=== PATIENT | male | born 1950 | race Caucasian/White ===

== ENCOUNTER 2018-01-12 14:10 | Inpatient (IN) | payer MEDICARE ==
[2018-01-07 09:43] LABS: BASOPHILS % (AUTO) 0.4 % (0-1); EOSINOPHILS # (AUTO) 0.3 X10'3 (0-0.9); EOSINOPHILS % (AUTO) 4.6 % (0-6); HEMATOCRIT 42.8 % (42.0-52.0); HEMOGLOBIN 14.7 g/dl (14.0-17.9); LYMPHOCYTES # (AUTO) 1.2 X10'3 (1.1-4.8); LYMPHOCYTES % (AUTO) 20.1 % (21-51); MEAN CORPUSCULAR HEMOGLOBIN 31.8 PG (27.0-31.0); MEAN CORPUSCULAR HGB CONC 34.3 % (33.0-36.5); MEAN CORPUSCULAR VOLUME 92.8 FL (78-98); MONOCYTES # (AUTO) 0.5 X10'3 (0-0.9); MONOCYTES % (AUTO) 8.7 % (2-12); NEUTROPHILS # (AUTO) 3.9 X10'3 (1.8-7.7); NEUTROPHILS % (AUTO) 66.2 % (42-75); PLATELET COUNT 197 X10'3 (140-440); RED BLOOD COUNT 4.61 X10'6 (4.70-6.10); RED CELL DISTRIBUTION WIDTH 13.4 % (11.5-14.5); WHITE BLOOD COUNT 5.9 X10'3 (4.5-11.0)
[2018-01-07 09:54] LABS: PARTIAL THROMBOPLASTIN TIME 27 SECONDS (22-32)
[2018-01-07 09:55] LABS: ALBUMIN 3.7 G/DL (3.4-5.0); ANION GAP 9 (8-16); BLOOD UREA NITROGEN 17 MG/DL (7-18); BUN/CREATININE RATIO 14.8 (5.4-32.0); CALCIUM 10.7 MG/DL (8.5-10.1); CHLORIDE 105 MMOL/L (99-107); CREATININE 1.15 MG/DL (0.60-1.10); GLUCOSE 134 MG/DL (70-104); SODIUM 140 MMOL/L (135-145); TOTAL CARBON DIOXIDE 25.8 MMOL/L (24-32); eGFR 64 ML/MIN
[~2018-01-12] VITALS: Ht 236.2 cm; Wt 92.4 kg
[2018-01-12] VITALS (9 sets, daily range): BP systolic 103–135; BP diastolic 51–75
[~2018-01-12 14:10] MED LIST: ASPI-611 PO; ATOR80TA PO; HYDROcodone/acetaminophen 10/325mg tab PO PRN; ISOS30TA6 PO; LISI10TA4 PO; METO100T7 PO; OXAZEpam 15mg capsule PO PRN; SILO8CAP PO; UBID50TA3 PO; nitroGLYCERIN 0.4mg SUBLingual tab SL PRN; proCHLORperazine 10 MG/2 ml inj IV PRN
[2018-01-12] MEDS ORDERED: LIDOcaine/PRILOcaine 5gm cream TP ONE (14:55)
[2018-01-12] MEDS ORDERED: diphenhydrAMINE 25mg capsule PO PRN (14:55)
[2018-01-12] MEDS ORDERED: LORazepam 0.5 MG tablet PO PRN (14:55)
[2018-01-12] MEDS ORDERED: TAMS0.4C32 PO (15:30)
[2018-01-12] MEDS ORDERED: NITR0.4T48 SL (15:30)
[2018-01-12] MEDS ORDERED: FOLI100T PO (15:30)
[2018-01-12] MEDS: normal saline 1000ml 1,000 ML IV SCH (16:46)
[2018-01-12] MEDS ORDERED: midazolam 2 mg/2 ml injection ONE (18:11)
[2018-01-12] MEDS ORDERED: nitroGLYCERIN-Tridil 50MG/D5W 250 ML IV ONE (18:11)
[2018-01-12] MEDS ORDERED: heparin 1,000unit/ml 10ml vial 10 ML ONE (18:11)
[2018-01-12] MEDS ORDERED: fentaNYL/PF 50MCG/1 ML 2ML syringe ONE (18:11)
[2018-01-12] MEDS ORDERED: iohexol 350MG/ML 100ml bottle IV ONE (18:12)
[2018-01-12] MEDS ORDERED: LIDOcaine 1% 30ml preserv. free vial ONE (18:12)
[2018-01-12] MEDS ORDERED: proCHLORperazine 10 MG/2 ml inj ONE (18:15)
[2018-01-12] MEDS ORDERED: verapamil 2.5 mg/ml inj IV ONE (18:22)
[2018-01-12] MEDS ORDERED: ondansetron/PF 4mg/2ml inj IV PRN (18:45)
[2018-01-12] MEDS: normal saline 1000ml 400 ML IV SCH ×2 (18:45→22:45)
[2018-01-12] MEDS ORDERED: HYDROcodone/acetaminophen 5mg/325mg tablet PO PRN (18:45)
[2018-01-13] MEDS: normal saline 1000ml 1,000 ML IV SCH ×2 (00:55→10:55)
[2018-01-13] MEDS: normal saline 1000ml 400 ML IV SCH ×3 (02:45→10:45)
[2018-01-13 03:00] VITALS: BP 116/56
[2018-01-13 05:11] LABS: BASOPHILS % (AUTO) 0.5 % (0-1); EOSINOPHILS # (AUTO) 0.2 X10'3 (0-0.9); EOSINOPHILS % (AUTO) 3.2 % (0-6); HEMATOCRIT 42.3 % (42.0-52.0); HEMOGLOBIN 14.6 g/dl (14.0-17.9); LYMPHOCYTES # (AUTO) 1.4 X10'3 (1.1-4.8); LYMPHOCYTES % (AUTO) 20.6 % (21-51); MEAN CORPUSCULAR HEMOGLOBIN 32.4 PG (27.0-31.0); MEAN CORPUSCULAR HGB CONC 34.5 % (33.0-36.5); MEAN CORPUSCULAR VOLUME 93.8 FL (78-98); MEAN PLATELET VOLUME 7.1 FL (7.4-10.4); MONOCYTES # (AUTO) 0.7 X10'3 (0-0.9); MONOCYTES % (AUTO) 9.8 % (2-12); NEUTROPHILS # (AUTO) 4.6 X10'3 (1.8-7.7); NEUTROPHILS % (AUTO) 65.9 % (42-75); PLATELET COUNT 189 X10'3 (140-440); RED CELL DISTRIBUTION WIDTH 13.2 % (11.5-14.5); WHITE BLOOD COUNT 6.9 X10'3 (4.5-11.0)
[2018-01-13 06:00] VITALS: BP 137/79
[2018-01-13 06:13] LABS: ALANINE AMINOTRANSFERASE 43 U/L (12-78); ALBUMIN 3.3 G/DL (3.4-5.0); ALKALINE PHOSPHATASE 81 IU/L (46-116); ANION GAP 8 (8-16); ASPARTATE AMINO TRANSFERASE 21 U/L (10-37); BILIRUBIN,TOTAL 0.5 MG/DL (0.1-1.0); BLOOD UREA NITROGEN 12 MG/DL (7-18); CALCIUM 10.3 MG/DL (8.5-10.1); CHLORIDE 107 MMOL/L (99-107); CHOL/HDL RATIO 4.1 (0.00-4.99); CHOLESTEROL 146 MG/DL (0-200); GLUCOSE 115 MG/DL (70-104); HDL CHOLESTEROL 36 MG/DL (35-60); POTASSIUM 3.9 MMOL/L (3.5-5.1); SODIUM 140 MMOL/L (135-145); TOTAL CARBON DIOXIDE 24.7 MMOL/L (24-32); TOTAL PROTEIN 6.5 G/DL (6.4-8.2); TRIGLYCERIDES 343 MG/DL (20-135); eGFR 75 ML/MIN
[2018-01-13 06:23] LABS: LDL CHOLESTEROL 73 MG/DL (50-100)
[2018-01-13] MEDS ORDERED: nitroGLYCERIN 0.4mg SUBLingual tab SL PRN (06:55)
[2018-01-13] MEDS ORDERED: MESSAGE TO NURSING PO ONE ×5 (07:30→10:00)
[2018-01-13] MEDS ORDERED: dextrose 50%-water 50ml dispensing syringe IV PRN (07:30)
[2018-01-13] MEDS ORDERED: UBIDECARENONE 400 MG PO SCH (08:00)
[2018-01-13] MEDS: metoprolol succinate 25mg (24-HOUR) SR. Tablet PO SCH (08:00)
[2018-01-13] MEDS: aspirin 81mg tab.chew PO SCH (08:01)
[2018-01-13] MEDS: tamsulosin 0.4mg capsule PO SCH (08:01)
[2018-01-13] MEDS: lisinopril 10 MG tablet PO SCH (08:01)
[2018-01-13] MEDS: multivitamins, therapeutics tablet PO SCH (08:01)
[2018-01-13 09:43] LABS: PARTIAL THROMBOPLASTIN TIME 29 SECONDS (22-32); PROTHROMBIN TIME 10.2 SECONDS (9.0-12.0)
[2018-01-13 11:00] VITALS: BP 141/69
[2018-01-13 11:16] LABS: ABG BASE EXCESS 1.1 mmol/L (-2.0-3.0); ABG HCO3 24.2 mmol/L (22.0-26.0); ABG PCO2 (T) 34.2 mmHg (35.0-48.0); ABG PH (T) 7.467 (7.350-7.450); ABG PO2 (T) 80.1 mmHg (83-108); ALLEN'S TEST Positive; FCOHb 0.1 % (0.5-1.5); FMetHb 0.1 % (0.3-1.12); FO2Hb 95.8 % (94-100); TOTAL HEMOGLOBIN 15.2 G/dl (14.0-18.0)
[2018-01-13 15:00] VITALS: BP 147/78
[2018-01-13] MEDS ORDERED: ringers solution, lacted 1,000 ML IV ONE (18:35)
[2018-01-13 19:00] VITALS: BP 144/88
[2018-01-13] MEDS: mupirocin 2% nasal ointment 1gm UD NS SCH (20:00)
[2018-01-13] MEDS ORDERED: atorvastatin 20mg tablet PO SCH (21:00)
[2018-01-13 23:00] VITALS: BP 119/62
[2018-01-14] VITALS (13 sets, daily range): BP systolic 101–150; BP diastolic 57–74
[2018-01-14] MEDS ORDERED: vancomycin/NS 1 GM ADD-VANTAGE 250 ML IV ONE ×2 (05:00→09:40)
[2018-01-14] MEDS ORDERED: insulin Lispro (HumaLOG) vial - multi-dose SQ SCH (05:00)
[2018-01-14] MEDS ORDERED: cefazolin/dext.iso 2gm/50ml 50 ML IV ONE (05:00)
[2018-01-14] MEDS: insulin regular, human inj. 100 UNITS in normal saline 100ml IV soln 100 ML IV SCH ×4 (05:00→23:24)
[2018-01-14 05:29] LABS: BASOPHILS % (AUTO) 0.4 % (0-1); EOSINOPHILS # (AUTO) 0.2 X10'3 (0-0.9); EOSINOPHILS % (AUTO) 2.6 % (0-6); HEMATOCRIT 46.4 % (42.0-52.0); HEMOGLOBIN 15.9 g/dl (14.0-17.9); LYMPHOCYTES # (AUTO) 1.8 X10'3 (1.1-4.8); LYMPHOCYTES % (AUTO) 22.2 % (21-51); MEAN CORPUSCULAR HGB CONC 34.3 % (33.0-36.5); MEAN CORPUSCULAR VOLUME 93.3 FL (78-98); MEAN PLATELET VOLUME 6.9 FL (7.4-10.4); MONOCYTES # (AUTO) 0.7 X10'3 (0-0.9); MONOCYTES % (AUTO) 8.4 % (2-12); NEUTROPHILS # (AUTO) 5.3 X10'3 (1.8-7.7); NEUTROPHILS % (AUTO) 66.4 % (42-75); PLATELET COUNT 241 X10'3 (140-440); RED BLOOD COUNT 4.97 X10'6 (4.70-6.10); RED CELL DISTRIBUTION WIDTH 13.4 % (11.5-14.5)
[2018-01-14 05:49] LABS: ALANINE AMINOTRANSFERASE 51 U/L (12-78); ALBUMIN/GLOBULIN RATIO 1.1 (1.1-1.5); ALKALINE PHOSPHATASE 96 IU/L (46-116); ANION GAP 12 (8-16); ASPARTATE AMINO TRANSFERASE 29 U/L (10-37); BLOOD UREA NITROGEN 9 MG/DL (7-18); BUN/CREATININE RATIO 7.7 (5.4-32.0); CALCIUM 11.3 MG/DL (8.5-10.1); CHLORIDE 103 MMOL/L (99-107); CREATININE 1.17 MG/DL (0.60-1.10); GLUCOSE 129 MG/DL (70-104); POTASSIUM 3.8 MMOL/L (3.5-5.1); SODIUM 139 MMOL/L (135-145); TOTAL CARBON DIOXIDE 24.3 MMOL/L (24-32); TOTAL PROTEIN 7.8 G/DL (6.4-8.2); eGFR 62 ML/MIN
[2018-01-14] MEDS ORDERED: LORazepam 2 mg/ml vial IV ONE (06:00)
[2018-01-14] MEDS ORDERED: famotidine 20mg tablet PO ONE (06:00)
[2018-01-14] MEDS: lisinopril 10 MG tablet PO SCH (08:00)
[2018-01-14] MEDS: tamsulosin 0.4mg capsule PO SCH (08:00)
[2018-01-14] MEDS: multivitamins, therapeutics tablet PO SCH (08:00)
[2018-01-14] MEDS: metoprolol succinate 25mg (24-HOUR) SR. Tablet PO SCH (10:41)
[2018-01-14] MEDS: mupirocin 2% nasal ointment 1gm UD NS SCH (10:42)
[2018-01-14] MEDS: aspirin 81mg tab.chew PO SCH (10:42)
[2018-01-14] MEDS ORDERED: MIDAZolam 1mg/ml 10ml vial ONE (10:51)
[2018-01-14] MEDS ORDERED: SUFENTANIL CITRATE 50 MCG/ML 2ml ampule IV ONE (10:51)
[2018-01-14] MEDS ORDERED: NORMAL SALINE IV ONE (12:15)
[2018-01-14] MEDS ORDERED: TRANEXAMIC ACID IV ONE (12:15)
[2018-01-14] MEDS ORDERED: calcium chloride 100 MG/1 ML inj IV ONE (13:35)
[2018-01-14] MEDS ORDERED: sodium bicarbonate (8.4%) 1 mEq/ml syringe ONE (13:35)
[2018-01-14] MEDS ORDERED: heparin 1,000 units/ml 10ml inj ONE (13:35)
[2018-01-14] MEDS ORDERED: phenylephrine 10mg/ml inj. ONE ×2 (13:35→19:01)
[2018-01-14] MEDS ORDERED: methylPREDNISolone sod. succ. 500mg inj ONE (13:35)
[2018-01-14] MEDS ORDERED: potassium Cl 2 mEq/ml inj IV ONE (13:35)
[2018-01-14] MEDS ORDERED: magnesium sulf 1 GM/2 ML ONE (13:35)
[2018-01-14] MEDS ORDERED: LIDOcaine 2% (20 mg/ml) 5ml cardiac syringe ONE (13:35)
[2018-01-14] MEDS ORDERED: heparin 10,000 units/1 ML INJ ONE (13:35)
[2018-01-14 14:25] LABS: ABG BASE EXCESS -2.2 mmol/L (-2.0-3.0); ABG HCO3 22.6 mmol/L (22.0-26.0); ABG OXYGEN SATURATION 99.4 % (95-98); ABG PCO2 39.1 mmHg (35.0-45.0); ABG PO2 360.6 mmHg (60.0-100.0); CL (ABG) 108 mmol/L (99-107); FCOHb 0.9 % (0.5-1.5); FMetHb 0.2 % (0.3-1.12); FO2Hb 98.3 % (94-100); GLUCOSE (ABG) 121 mg/dl (70-105); IONIZED CA (ABG) 1.36 mmol/L (1.03-1.32); K (ABG) 3.9 mmol/L (3.3-5.1); NA (ABG) 139 mmol/L (135-145); TOTAL HEMOGLOBIN 13.5 G/dl (14.0-18.0)
[2018-01-14] MEDS ORDERED: papaverine 30 mg/ml 2ml inj. IA ONE (14:42)
[2018-01-14] MEDS ORDERED: tranexamic acid 100mg/ml inj. ONE (14:58)
[2018-01-14 15:26] LABS: ABG BASE EXCESS VENOUS -3.1 mmol/L; ABG HCO3 VENOUS 22.2 mmol/L; ABG PCO2 VENOUS 40.8 mmHg; ABG PO2 VENOUS 51.8 mmHg; CL (ABG) 107 mmol/L (99-107); FCOHb VENOUS 1.1 %; FHHb VENOUS 15.2 %; FO2Hb VENOUS 83.7 %; GLUCOSE (ABG) 127 mg/dl (70-105); IONIZED CA (ABG) 1.35 mmol/L (1.03-1.32); K (ABG) 4.1 mmol/L (3.3-5.1); NA (ABG) 141 mmol/L (135-145); TOTAL HEMOGLOBIN 14.1 G/dl (14.0-18.0)
[2018-01-14 16:06] LABS: ABG BASE EXCESS -2.1 mmol/L (-2.0-3.0); ABG HCO3 23.2 mmol/L (22.0-26.0); ABG OXYGEN SATURATION 99.3 % (95-98); ABG PCO2 41.7 mmHg (35.0-45.0); ABG PH 7.363 (7.350-7.450); ABG PO2 359.6 mmHg (60.0-100.0); CL (ABG) 107 mmol/L (99-107); FCOHb 0.2 % (0.5-1.5); FMetHb 0.5 % (0.3-1.12); FO2Hb 98.6 % (94-100); GLUCOSE (ABG) 134 mg/dl (70-105); IONIZED CA (ABG) 1.19 mmol/L (1.03-1.32); NA (ABG) 137 mmol/L (135-145); TOTAL HEMOGLOBIN 11.3 G/dl (14.0-18.0)
[2018-01-14 16:31] LABS: ABG HCO3 26.9 mmol/L (22.0-26.0); ABG OXYGEN SATURATION 99.2 % (95-98); ABG PCO2 43.4 mmHg (35.0-45.0); ABG PO2 375.7 mmHg (60.0-100.0); CL (ABG) 106 mmol/L (99-107); FMetHb 0.5 % (0.3-1.12); FO2Hb 98.7 % (94-100); GLUCOSE (ABG) 138 mg/dl (70-105); IONIZED CA (ABG) 1.21 mmol/L (1.03-1.32); NA (ABG) 139 mmol/L (135-145); TOTAL HEMOGLOBIN 11.6 G/dl (14.0-18.0)
[2018-01-14 17:20] LABS: ABG BASE EXCESS VENOUS -0.2 mmol/L; ABG HCO3 VENOUS 25.2 mmol/L; ABG PCO2 VENOUS 44.1 mmHg; ABG PO2 VENOUS 40.1 mmHg; CL (ABG) 108 mmol/L (99-107); FCOHb VENOUS 0.8 %; FHHb VENOUS 25.4 %; FMetHb VENOUS 0.5 %; FO2Hb VENOUS 73.3 %; GLUCOSE (ABG) 142 mg/dl (70-105); IONIZED CA (ABG) 1.37 mmol/L (1.03-1.32); K (ABG) 4.5 mmol/L (3.3-5.1); NA (ABG) 138 mmol/L (135-145); TOTAL HEMOGLOBIN 12.2 G/dl (14.0-18.0)
[2018-01-14] MEDS ORDERED: niCARDipine/sod cl 20mg/200ml 200 ML IV PRN (17:31)
[2018-01-14] MEDS ORDERED: DOPamine 400mg/D5W 250ml 250 ML IV PRN (17:31)
[2018-01-14] MEDS ORDERED: nitroGLYCERIN-Tridil 50MG/D5W 250 ML IV PRN (17:31)
[2018-01-14] MEDS ORDERED: sodium phosphate inj. 15 MMOL in dextrose 5%-water 150 ML IV PRN (17:35)
[2018-01-14] MEDS ORDERED: Neutra Phos packet PO PRN (17:35)
[2018-01-14] MEDS ORDERED: dextrose 50%-water 50ml dispensing syringe IV PRN (17:35)
[2018-01-14] MEDS ORDERED: albumin (Human) 5% 250ml 250 ML IV PRN (17:35)
[2018-01-14] MEDS ORDERED: morphine 4 MG/ML inj SYRINge IV PRN (17:35)
[2018-01-14] MEDS ORDERED: acetaminophen 325mg tablet PO PRN (17:35)
[2018-01-14] MEDS ORDERED: potassium Cl 20mEq/100mL bag 100 ML IV PRN (17:35)
[2018-01-14] MEDS ORDERED: ondansetron/PF 4mg/2ml inj IV PRN (17:35)
[2018-01-14] MEDS ORDERED: normal saline 250ml IV soln 250 ML IV PRN (17:35)
[2018-01-14] MEDS ORDERED: magnesium hydroxide 30ml (MOM) UD suspension PO PRN (17:35)
[2018-01-14] MEDS ORDERED: insulin regular, human inj. 100 UNITS in normal saline 100ml IV soln 100 ML IV SCH ×2 (17:35)
[2018-01-14] MEDS ORDERED: sodium phosphate inj. 30 MMOL in dextrose 5%-water 250 ML IV PRN (17:35)
[2018-01-14] MEDS ORDERED: HYDROcodone/acetaminophen 10/325mg tab PO PRN (17:35)
[2018-01-14] MEDS ORDERED: morphine 4 MG/ML inj SYRINge ONE (17:52)
[2018-01-14] MEDS: morphine 4 MG/ML inj SYRINge IV PRN ×3 (17:55→23:34)
[2018-01-14 17:58] LABS: LYMPHOCYTES # (AUTO) 0.6 X10'3 (1.1-4.8); LYMPHOCYTES % (AUTO) 5.5 % (21-51); MONOCYTES # (AUTO) 0.4 X10'3 (0-0.9); WHITE BLOOD COUNT 11.6 X10'3 (4.5-11.0)
[2018-01-14] MEDS: insulin Lispro (HumaLOG) vial - multi-dose SQ SCH (18:00)
[2018-01-14] MEDS: sodium chloride 0.45% 1,000 ML IV SCH (18:06)
[2018-01-14 18:08] LABS: BASOPHILS % (AUTO) 0 % (0-1); EOSINOPHILS # (AUTO) 0.1 X10'3 (0-0.9); EOSINOPHILS % (AUTO) 0.7 % (0-6); HEMATOCRIT 34.1 % (42.0-52.0); HEMOGLOBIN 11.7 g/dl (14.0-17.9); INR 1.1 INR; MEAN CORPUSCULAR HGB CONC 34.3 % (33.0-36.5); MEAN CORPUSCULAR VOLUME 93.3 FL (78-98); MEAN PLATELET VOLUME 6.9 FL (7.4-10.4); MONOCYTES % (AUTO) 3.6 % (2-12); NEUTROPHILS # (AUTO) 10.5 X10'3 (1.8-7.7); NEUTROPHILS % (AUTO) 90.2 % (42-75); PARTIAL THROMBOPLASTIN TIME 30 SECONDS (22-32); PLATELET COUNT 153 X10'3 (140-440); PROTHROMBIN TIME 11.3 SECONDS (9.0-12.0); RED BLOOD COUNT 3.66 X10'6 (4.70-6.10); RED CELL DISTRIBUTION WIDTH 11.9 % (11.5-14.5)
[2018-01-14 18:11] LABS: ABG BASE EXCESS -4.3 mmol/L (-2.0-3.0); ABG HCO3 20.4 mmol/L (22.0-26.0); ABG PCO2 (T) 36.3 mmHg (35.0-48.0); ABG PH (T) 7.368 (7.350-7.450); ABG PO2 (T) 90.5 mmHg (83-108); FCOHb 0.3 % (0.5-1.5); FLOW 45 L/min; FMetHb 0.2 % (0.3-1.12); FO2Hb 95.5 % (94-100); MINUTE VOLUME 9 L/min; PEEP 5 cm H2O; RESPIRATORY RATE 12 b/min; RESPIRATORY RATE (OBSERVED) 12 b/min; TIDAL VOLUME 650 mL; TOTAL HEMOGLOBIN 13.1 G/dl (14.0-18.0)
[2018-01-14 18:12] LABS: ALANINE AMINOTRANSFERASE 35 U/L (12-78); ALBUMIN 2.7 G/DL (3.4-5.0); ALBUMIN/GLOBULIN RATIO 1.2 (1.1-1.5); ALKALINE PHOSPHATASE 54 IU/L (46-116); ANION GAP 6 (8-16); ASPARTATE AMINO TRANSFERASE 23 U/L (10-37); BILIRUBIN,TOTAL 0.9 MG/DL (0.1-1.0); BLOOD UREA NITROGEN 8 MG/DL (7-18); BUN/CREATININE RATIO 7.8 (5.4-32.0); CALCIUM 9.1 MG/DL (8.5-10.1); CHLORIDE 109 MMOL/L (99-107); CREATININE 1.03 MG/DL (0.60-1.10); GLUCOSE 155 MG/DL (70-104); MAGNESIUM 2.5 MG/DL (1.5-2.4); PHOSPHORUS 2.4 MG/DL (2.3-4.5); POTASSIUM 4.3 MMOL/L (3.5-5.1); SODIUM 139 MMOL/L (135-145); TOTAL PROTEIN 4.9 G/DL (6.4-8.2); eGFR 72 ML/MIN
[2018-01-14] MEDS ORDERED: albuterol 2.5 MG/3 ML nebule NEB SCH (19:00)
[2018-01-14] MEDS ORDERED: LIDOcaine 2% (20mg/ml) 5ml vial ONE (19:01)
[2018-01-14] MEDS ORDERED: propofol inj 20 ML IV ONE (19:01)
[2018-01-14] MEDS ORDERED: rocuronium 10mg/ml inj IV ONE (19:01)
[2018-01-14] MEDS: docusate sod 100mg capsule PO SCH (20:00)
[2018-01-14 20:26] LABS: ABG BASE EXCESS -4.5 mmol/L (-2.0-3.0); ABG HCO3 20.6 mmol/L (22.0-26.0); ABG PH (T) 7.343 (7.350-7.450); ABG PO2 (T) 102.4 mmHg (83-108); FCOHb 0.3 % (0.5-1.5); FMetHb 0.3 % (0.3-1.12); FO2Hb 96.4 % (94-100); MINUTE VOLUME 10 L/min; PATIENT TEMPERATURE 37.3; PEEP 5 cm H2O; RESPIRATORY RATE (OBSERVED) 17 b/min; TOTAL HEMOGLOBIN 13.9 G/dl (14.0-18.0)
[2018-01-14] MEDS: vancomycin/NS 1 GM ADD-VANTAGE 250 ML IV SCH (20:47)
[2018-01-14] MEDS: mupirocin 2% ointment 22GM NS SCH (21:21)
[2018-01-14 23:17] LABS: BASOPHILS % (AUTO) 0.1 % (0-1); EOSINOPHILS % (AUTO) 0.1 % (0-6); HEMATOCRIT 36.7 % (42.0-52.0); HEMOGLOBIN 12.8 g/dl (14.0-17.9); LYMPHOCYTES # (AUTO) 0.3 X10'3 (1.1-4.8); LYMPHOCYTES % (AUTO) 2.2 % (21-51); MEAN CORPUSCULAR HEMOGLOBIN 32.7 PG (27.0-31.0); MEAN CORPUSCULAR HGB CONC 34.8 % (33.0-36.5); MEAN CORPUSCULAR VOLUME 93.9 FL (78-98); MEAN PLATELET VOLUME 6.9 FL (7.4-10.4); MONOCYTES # (AUTO) 0.5 X10'3 (0-0.9); MONOCYTES % (AUTO) 3.6 % (2-12); NEUTROPHILS # (AUTO) 13.2 X10'3 (1.8-7.7); PLATELET COUNT 173 X10'3 (140-440); RED BLOOD COUNT 3.91 X10'6 (4.70-6.10); RED CELL DISTRIBUTION WIDTH 12.3 % (11.5-14.5)
[2018-01-14 23:24] LABS: ALBUMIN 3.2 G/DL (3.4-5.0); ANION GAP 8 (8-16); BLOOD UREA NITROGEN 11 MG/DL (7-18); CALCIUM 9.5 MG/DL (8.5-10.1); CHLORIDE 108 MMOL/L (99-107); CREATININE 1.22 MG/DL (0.60-1.10); GLUCOSE 173 MG/DL (70-104); POTASSIUM 4.3 MMOL/L (3.5-5.1); SODIUM 139 MMOL/L (135-145); TOTAL CARBON DIOXIDE 22.9 MMOL/L (24-32); eGFR 59 ML/MIN
[2018-01-15] VITALS (24 sets, daily range): BP systolic 100–175; BP diastolic 56–86
[2018-01-15] MEDS: ceFAZolin 1GM/D5W- ADD-VANTAGE 50 ML IV SCH ×3 (00:05→16:35)
[2018-01-15] MEDS: ketorolac tromethamine 15mg/ml inj. IV SCH ×4 (01:37→20:36)
[2018-01-15 02:39] LABS: PARTIAL THROMBOPLASTIN TIME 25 SECONDS (22-32); PROTHROMBIN TIME 10.5 SECONDS (9.0-12.0)
[2018-01-15 02:45] LABS: ALANINE AMINOTRANSFERASE 42 U/L (12-78); ALBUMIN 3.2 G/DL (3.4-5.0); ALBUMIN/GLOBULIN RATIO 1.2 (1.1-1.5); ALKALINE PHOSPHATASE 59 IU/L (46-116); ANION GAP 9 (8-16); ASPARTATE AMINO TRANSFERASE 30 U/L (10-37); BILIRUBIN,TOTAL 0.9 MG/DL (0.1-1.0); BLOOD UREA NITROGEN 11 MG/DL (7-18); BUN/CREATININE RATIO 8.5 (5.4-32.0); CALCIUM 9.4 MG/DL (8.5-10.1); CHLORIDE 108 MMOL/L (99-107); CREATININE 1.29 MG/DL (0.60-1.10); GLUCOSE 147 MG/DL (70-104); MAGNESIUM 1.9 MG/DL (1.5-2.4); PHOSPHORUS 2.4 MG/DL (2.3-4.5); POTASSIUM 4.2 MMOL/L (3.5-5.1); SODIUM 140 MMOL/L (135-145); TOTAL CARBON DIOXIDE 23.1 MMOL/L (24-32); TOTAL PROTEIN 5.9 G/DL (6.4-8.2); eGFR 56 ML/MIN
[2018-01-15 02:56] LABS: BASOPHILS % (AUTO) 0 % (0-1); EOSINOPHILS % (AUTO) 0.1 % (0-6); HEMATOCRIT 35.4 % (42.0-52.0); HEMOGLOBIN 12.3 g/dl (14.0-17.9); LYMPHOCYTES # (AUTO) 0.4 X10'3 (1.1-4.8); LYMPHOCYTES % (AUTO) 2.6 % (21-51); MEAN CORPUSCULAR HEMOGLOBIN 32.5 PG (27.0-31.0); MEAN CORPUSCULAR HGB CONC 34.8 % (33.0-36.5); MEAN CORPUSCULAR VOLUME 93.3 FL (78-98); MEAN PLATELET VOLUME 7.2 FL (7.4-10.4); MONOCYTES # (AUTO) 0.4 X10'3 (0-0.9); MONOCYTES % (AUTO) 2.8 % (2-12); NEUTROPHILS # (AUTO) 13.3 X10'3 (1.8-7.7); NEUTROPHILS % (AUTO) 94.5 % (42-75); PLATELET COUNT 172 X10'3 (140-440); RED CELL DISTRIBUTION WIDTH 12.5 % (11.5-14.5); WHITE BLOOD COUNT 14.1 X10'3 (4.5-11.0)
[2018-01-15] MEDS: magnesium 4gm in 100ml NS 100 ML IV PRN (03:37)
[2018-01-15] MEDS: insulin regular, human inj. 100 UNITS in normal saline 100ml IV soln 100 ML IV SCH ×2 (04:17)
[2018-01-15] MEDS: metoclopramide 5 mg/ml inj IV PRN ×2 (05:13→12:38)
[2018-01-15] MEDS: pantoprazole 40mg Tablet.DR PO SCH (07:47)
[2018-01-15] MEDS: docusate sod 100mg capsule PO SCH ×2 (07:47→20:36)
[2018-01-15] MEDS: mupirocin 2% ointment 22GM NS SCH ×2 (07:47→20:35)
[2018-01-15] MEDS: tamsulosin 0.4mg capsule PO SCH (07:48)
[2018-01-15] MEDS: HYDROcodone/acetaminophen 10/325mg tab PO PRN ×2 (07:49→14:39)
[2018-01-15] MEDS: vancomycin/NS 1 GM ADD-VANTAGE 250 ML IV SCH ×2 (07:50→20:37)
[2018-01-15] MEDS: aspirin 325mg tablet, delayed-release (Ecotrin) PO SCH (07:51)
[2018-01-15] MEDS: potassium Cl 20mEq/100mL bag 100 ML IV PRN ×3 (07:53→21:01)
[2018-01-15] MEDS ORDERED: metoprolol tartrate 12.5mg (1/2 tablet) PO SCH (08:00)
[2018-01-15] MEDS ORDERED: atorvastatin 10mg tablet PO SCH (08:00)
[2018-01-15] MEDS: insulin Lispro (HumaLOG) vial - multi-dose SQ SCH ×3 (09:00→18:45)
[2018-01-15 15:44] LABS: MAGNESIUM 2.1 MG/DL (1.5-2.4); POTASSIUM 3.5 MMOL/L (3.5-5.1)
[2018-01-15] MEDS: magnesium 1gm/100ml D5W IVPB 100 ML IV PRN ×2 (17:59→19:19)
[2018-01-15] MEDS: morphine 4 MG/ML inj SYRINge IV PRN (18:08)
[2018-01-15] MEDS: metoprolol tartrate 25mg tablet PO SCH (20:36)
[2018-01-16] VITALS (23 sets, daily range): BP systolic 95–141; BP diastolic 25–82
[2018-01-16] MEDS: ceFAZolin 1GM/D5W- ADD-VANTAGE 50 ML IV SCH ×2 (00:42→08:18)
[2018-01-16] MEDS: ketorolac tromethamine 15mg/ml inj. IV SCH ×4 (02:20→19:59)
[2018-01-16 02:54] LABS: ALBUMIN 3.1 G/DL (3.4-5.0); ANION GAP 6 (8-16); BLOOD UREA NITROGEN 14 MG/DL (7-18); BUN/CREATININE RATIO 12.6 (5.4-32.0); CALCIUM 9.5 MG/DL (8.5-10.1); CHLORIDE 105 MMOL/L (99-107); CREATININE 1.11 MG/DL (0.60-1.10); GLUCOSE 141 MG/DL (70-104); MAGNESIUM 2.5 MG/DL (1.5-2.4); PHOSPHORUS 2.5 MG/DL (2.3-4.5); POTASSIUM 4.6 MMOL/L (3.5-5.1); SODIUM 136 MMOL/L (135-145); TOTAL CARBON DIOXIDE 25.3 MMOL/L (24-32); eGFR 66 ML/MIN
[2018-01-16 02:58] LABS: BASOPHILS % (AUTO) 0.1 % (0-1); EOSINOPHILS % (AUTO) 0.1 % (0-6); HEMATOCRIT 31.9 % (42.0-52.0); HEMOGLOBIN 10.7 g/dl (14.0-17.9); LYMPHOCYTES # (AUTO) 0.7 X10'3 (1.1-4.8); LYMPHOCYTES % (AUTO) 4.5 % (21-51); MEAN CORPUSCULAR HEMOGLOBIN 31.9 PG (27.0-31.0); MEAN CORPUSCULAR HGB CONC 33.6 % (33.0-36.5); MEAN CORPUSCULAR VOLUME 94.9 FL (78-98); MEAN PLATELET VOLUME 7.3 FL (7.4-10.4); MONOCYTES # (AUTO) 1.1 X10'3 (0-0.9); MONOCYTES % (AUTO) 7.2 % (2-12); NEUTROPHILS # (AUTO) 13.6 X10'3 (1.8-7.7); NEUTROPHILS % (AUTO) 88.1 % (42-75); PLATELET COUNT 147 X10'3 (140-440); RED BLOOD COUNT 3.36 X10'6 (4.70-6.10); RED CELL DISTRIBUTION WIDTH 12.6 % (11.5-14.5); WHITE BLOOD COUNT 15.4 X10'3 (4.5-11.0)
[2018-01-16] MEDS: insulin regular, human inj. 100 UNITS in normal saline 100ml IV soln 100 ML IV SCH ×2 (05:00)
[2018-01-16] MEDS: pantoprazole 40mg Tablet.DR PO SCH (08:16)
[2018-01-16] MEDS: tamsulosin 0.4mg capsule PO SCH (08:16)
[2018-01-16] MEDS: metoprolol tartrate 25mg tablet PO SCH ×2 (08:17→20:00)
[2018-01-16] MEDS: HYDROcodone/acetaminophen 10/325mg tab PO PRN (08:17)
[2018-01-16] MEDS: docusate sod 100mg capsule PO SCH ×2 (08:17→20:00)
[2018-01-16] MEDS: aspirin 325mg tablet, delayed-release (Ecotrin) PO SCH (08:17)
[2018-01-16] MEDS: atorvastatin 20mg tablet PO SCH (08:18)
[2018-01-16] MEDS: mupirocin 2% ointment 22GM NS SCH (08:18)
[2018-01-16] MEDS: insulin Lispro (HumaLOG) vial - multi-dose SQ SCH ×3 (08:19→18:00)
[2018-01-16] MEDS ORDERED: neostigmine methylsulfate 1 MG/ML 10ml vial IV ONE (09:15)
[2018-01-16] MEDS: sodium chloride 0.45% 1,000 ML IV SCH (16:45)
[2018-01-17] VITALS (25 sets, daily range): BP systolic 103–145; BP diastolic 64–89
[2018-01-17] MEDS: ketorolac tromethamine 15mg/ml inj. IV SCH (01:48)
[2018-01-17 02:16] LABS: BASOPHILS # (AUTO) 0.1 X10'3 (0-0.2); BASOPHILS % (AUTO) 0.5 % (0-1); EOSINOPHILS # (AUTO) 0.1 X10'3 (0-0.9); EOSINOPHILS % (AUTO) 1.3 % (0-6); HEMATOCRIT 31.1 % (42.0-52.0); HEMOGLOBIN 10.6 g/dl (14.0-17.9); LYMPHOCYTES % (AUTO) 8.3 % (21-51); MEAN CORPUSCULAR HEMOGLOBIN 32.4 PG (27.0-31.0); MEAN CORPUSCULAR HGB CONC 34.1 % (33.0-36.5); MEAN CORPUSCULAR VOLUME 95.1 FL (78-98); MEAN PLATELET VOLUME 7.2 FL (7.4-10.4); MONOCYTES # (AUTO) 1.2 X10'3 (0-0.9); MONOCYTES % (AUTO) 10.1 % (2-12); NEUTROPHILS # (AUTO) 9.1 X10'3 (1.8-7.7); NEUTROPHILS % (AUTO) 79.8 % (42-75); PLATELET COUNT 143 X10'3 (140-440); RED BLOOD COUNT 3.28 X10'6 (4.70-6.10); RED CELL DISTRIBUTION WIDTH 12.8 % (11.5-14.5); WHITE BLOOD COUNT 11.5 X10'3 (4.5-11.0)
[2018-01-17 02:27] LABS: ALBUMIN 2.8 G/DL (3.4-5.0); ANION GAP 8 (8-16); BLOOD UREA NITROGEN 17 MG/DL (7-18); BUN/CREATININE RATIO 15.6 (5.4-32.0); CALCIUM 9.6 MG/DL (8.5-10.1); CHLORIDE 104 MMOL/L (99-107); CREATININE 1.09 MG/DL (0.60-1.10); GLUCOSE 112 MG/DL (70-104); MAGNESIUM 1.9 MG/DL (1.5-2.4); PHOSPHORUS 2.6 MG/DL (2.3-4.5); POTASSIUM 3.9 MMOL/L (3.5-5.1); SODIUM 137 MMOL/L (135-145); TOTAL CARBON DIOXIDE 25.3 MMOL/L (24-32); eGFR 68 ML/MIN
[2018-01-17] MEDS: magnesium 4gm in 100ml NS 100 ML IV PRN (02:45)
[2018-01-17] MEDS: potassium Cl 20mEq/100mL bag 100 ML IV PRN ×2 (02:45→03:43)
[2018-01-17 05:26] LABS: ACT @ 1.70 U 320 SEC (193-297); ACT @ 2.84 U 458 SEC (260-420); BASELINE ACT 153 SEC (101-148); PATIENT WEIGHT 87.0k KG
[2018-01-17] MEDS ORDERED: potassium Cl 40MEQ/NS 500ml 500 ML IV PRN ×2 (07:10)
[2018-01-17] MEDS ORDERED: magnesium 4gm in 100ml NS 100 ML IV PRN (07:10)
[2018-01-17] MEDS ORDERED: magnesium 1gm/100ml D5W IVPB 100 ML IV PRN (07:10)
[2018-01-17] MEDS ORDERED: magnesium Cl slow-release 64mg tablet PO PRN (07:10)
[2018-01-17] MEDS ORDERED: potassium Cl 20 mEq SR tablet PO PRN ×2 (07:10)
[2018-01-17] MEDS: metoprolol tartrate 25mg tablet PO SCH ×2 (08:15→20:26)
[2018-01-17] MEDS: potassium Cl 20 mEq SR tablet PO SCH ×2 (08:15→20:27)
[2018-01-17] MEDS: tamsulosin 0.4mg capsule PO SCH (08:15)
[2018-01-17] MEDS: atorvastatin 20mg tablet PO SCH (08:15)
[2018-01-17] MEDS: K and/or MAG REPLACEMENT MC SCH (08:16)
[2018-01-17] MEDS: magnesium Cl slow-release 64mg tablet PO SCH ×2 (08:16→20:27)
[2018-01-17] MEDS: pantoprazole 40mg Tablet.DR PO SCH (08:16)
[2018-01-17] MEDS: docusate sod 100mg capsule PO SCH ×2 (08:16→20:26)
[2018-01-17] MEDS: aspirin 325mg tablet, delayed-release (Ecotrin) PO SCH (08:16)
[2018-01-17] MEDS ORDERED: amiodarone 150mg/dext, iso-os 100 ML IV ONE ×2 (09:10→14:50)
[2018-01-17] MEDS: amiodarone/D5 360MG/200ML BAG 200 ML IV SCH ×3 (09:37→21:17)
[2018-01-17 12:54] LABS: K (ABG) 6.2 mmol/L (3.3-5.1)
[2018-01-17] MEDS: lactose-reduced food (Ensure Enlive) - 237ml bottle PO SCH ×2 (13:00→18:00)
[2018-01-17] MEDS: ketorolac tromethamine 15mg/ml inj. IV PRN (20:26)
[2018-01-17] MEDS ORDERED: digoxin 250mcg/ml 2ml ampule IV ONE (20:35)
[2018-01-18] VITALS (19 sets, daily range): BP systolic 119–155; BP diastolic 68–91
[2018-01-18] MEDS: amiodarone/D5 360MG/200ML BAG 200 ML IV SCH (00:16)
[2018-01-18] MEDS: digoxin 250mcg/ml 2ml ampule IV SCH ×2 (05:01→13:35)
[2018-01-18 05:14] LABS: BASOPHILS # (AUTO) 0.1 X10'3 (0-0.2); BASOPHILS % (AUTO) 0.5 % (0-1); EOSINOPHILS # (AUTO) 0.2 X10'3 (0-0.9); HEMATOCRIT 34.2 % (42.0-52.0); HEMOGLOBIN 11.8 g/dl (14.0-17.9); LYMPHOCYTES # (AUTO) 1.2 X10'3 (1.1-4.8); LYMPHOCYTES % (AUTO) 11.1 % (21-51); MEAN CORPUSCULAR HEMOGLOBIN 32.5 PG (27.0-31.0); MEAN CORPUSCULAR HGB CONC 34.6 % (33.0-36.5); MEAN CORPUSCULAR VOLUME 93.8 FL (78-98); MEAN PLATELET VOLUME 7.1 FL (7.4-10.4); MONOCYTES % (AUTO) 9.7 % (2-12); NEUTROPHILS # (AUTO) 8.1 X10'3 (1.8-7.7); NEUTROPHILS % (AUTO) 76.7 % (42-75); PLATELET COUNT 179 X10'3 (140-440); RED BLOOD COUNT 3.64 X10'6 (4.70-6.10); RED CELL DISTRIBUTION WIDTH 13.1 % (11.5-14.5); WHITE BLOOD COUNT 10.6 X10'3 (4.5-11.0)
[2018-01-18 05:33] LABS: ALBUMIN 2.8 G/DL (3.4-5.0); ANION GAP 7 (8-16); BLOOD UREA NITROGEN 15 MG/DL (7-18); BUN/CREATININE RATIO 15.8 (5.4-32.0); CALCIUM 10.1 MG/DL (8.5-10.1); CHLORIDE 105 MMOL/L (99-107); CREATININE 0.95 MG/DL (0.60-1.10); GLUCOSE 138 MG/DL (70-104); POTASSIUM 3.9 MMOL/L (3.5-5.1); SODIUM 135 MMOL/L (135-145); TOTAL CARBON DIOXIDE 23.3 MMOL/L (24-32); eGFR 79 ML/MIN
[2018-01-18] MEDS: pantoprazole 40mg Tablet.DR PO SCH (07:13)
[2018-01-18] MEDS: metoprolol tartrate 25mg tablet PO SCH ×2 (07:52→21:18)
[2018-01-18] MEDS: atorvastatin 20mg tablet PO SCH (07:52)
[2018-01-18] MEDS: potassium Cl 20 mEq SR tablet PO SCH ×2 (07:52→21:17)
[2018-01-18] MEDS: aspirin 325mg tablet, delayed-release (Ecotrin) PO SCH (07:52)
[2018-01-18] MEDS: magnesium Cl slow-release 64mg tablet PO SCH ×2 (07:52→21:18)
[2018-01-18] MEDS: docusate sod 100mg capsule PO SCH ×2 (07:53→21:18)
[2018-01-18] MEDS: tamsulosin 0.4mg capsule PO SCH (07:53)
[2018-01-18] MEDS: K and/or MAG REPLACEMENT MC SCH (07:54)
[2018-01-18] MEDS ORDERED: magnesium citrate 296ml oral solution PO ONE (08:30)
[2018-01-18] MEDS: amiodarone 200mg tablet PO SCH ×3 (08:51→21:18)
[2018-01-18] MEDS: ketorolac tromethamine 15mg/ml inj. IV PRN (08:51)
[2018-01-18] MEDS: lactose-reduced food (Ensure Enlive) - 237ml bottle PO SCH ×3 (08:52→18:00)
[2018-01-18] MEDS ORDERED: digoxin 250mcg/ml 2ml ampule IV ONE (13:45)
[2018-01-19] VITALS (7 sets, daily range): BP systolic 116–154; BP diastolic 67–90
[2018-01-19 06:30] LABS: BASOPHILS % (AUTO) 0.4 % (0-1); EOSINOPHILS # (AUTO) 0.3 X10'3 (0-0.9); EOSINOPHILS % (AUTO) 3.7 % (0-6); HEMATOCRIT 34.6 % (42.0-52.0); HEMOGLOBIN 11.9 g/dl (14.0-17.9); LYMPHOCYTES # (AUTO) 0.8 X10'3 (1.1-4.8); LYMPHOCYTES % (AUTO) 8.9 % (21-51); MEAN CORPUSCULAR HGB CONC 34.3 % (33.0-36.5); MEAN CORPUSCULAR VOLUME 93.2 FL (78-98); MEAN PLATELET VOLUME 6.5 FL (7.4-10.4); MONOCYTES # (AUTO) 0.9 X10'3 (0-0.9); MONOCYTES % (AUTO) 10.2 % (2-12); NEUTROPHILS # (AUTO) 6.9 X10'3 (1.8-7.7); NEUTROPHILS % (AUTO) 76.8 % (42-75); PLATELET COUNT 227 X10'3 (140-440); RED BLOOD COUNT 3.72 X10'6 (4.70-6.10); RED CELL DISTRIBUTION WIDTH 13.2 % (11.5-14.5); WHITE BLOOD COUNT 8.9 X10'3 (4.5-11.0)
[2018-01-19 06:38] LABS: ALBUMIN 2.6 G/DL (3.4-5.0); ANION GAP 9 (8-16); BLOOD UREA NITROGEN 11 MG/DL (7-18); BUN/CREATININE RATIO 11.7 (5.4-32.0); CALCIUM 10.6 MG/DL (8.5-10.1); CHLORIDE 105 MMOL/L (99-107); CREATININE 0.94 MG/DL (0.60-1.10); GLUCOSE 124 MG/DL (70-104); POTASSIUM 4.1 MMOL/L (3.5-5.1); SODIUM 139 MMOL/L (135-145); eGFR 80 ML/MIN
[2018-01-19] MEDS: potassium Cl 20 mEq SR tablet PO SCH ×2 (07:08→20:00)
[2018-01-19] MEDS: docusate sod 100mg capsule PO SCH ×2 (08:00→20:00)
[2018-01-19] MEDS: K and/or MAG REPLACEMENT MC SCH (08:00)
[2018-01-19] MEDS: tamsulosin 0.4mg capsule PO SCH (08:17)
[2018-01-19] MEDS: magnesium Cl slow-release 64mg tablet PO SCH ×2 (08:17→20:00)
[2018-01-19] MEDS: atorvastatin 20mg tablet PO SCH (08:17)
[2018-01-19] MEDS: pantoprazole 40mg Tablet.DR PO SCH (08:17)
[2018-01-19] MEDS: aspirin 325mg tablet, delayed-release (Ecotrin) PO SCH (08:17)
[2018-01-19] MEDS: metoprolol tartrate 25mg tablet PO SCH ×2 (08:17→20:52)
[2018-01-19] MEDS: amiodarone 200mg tablet PO SCH ×3 (08:19→20:53)
[2018-01-19] MEDS: lactose-reduced food (Ensure Enlive) - 237ml bottle PO SCH ×3 (08:21→18:01)
[2018-01-20 02:00] VITALS: BP 144/78
[2018-01-20 05:18] LABS: BASOPHILS % (AUTO) 0.3 % (0-1); EOSINOPHILS # (AUTO) 0.4 X10'3 (0-0.9); EOSINOPHILS % (AUTO) 3.8 % (0-6); HEMATOCRIT 35.9 % (42.0-52.0); LYMPHOCYTES # (AUTO) 1.1 X10'3 (1.1-4.8); LYMPHOCYTES % (AUTO) 9.1 % (21-51); MEAN CORPUSCULAR HEMOGLOBIN 31.6 PG (27.0-31.0); MEAN CORPUSCULAR HGB CONC 33.5 % (33.0-36.5); MEAN CORPUSCULAR VOLUME 94.4 FL (78-98); MEAN PLATELET VOLUME 7.3 FL (7.4-10.4); MONOCYTES # (AUTO) 1.2 X10'3 (0-0.9); NEUTROPHILS # (AUTO) 8.9 X10'3 (1.8-7.7); NEUTROPHILS % (AUTO) 76.8 % (42-75); PLATELET COUNT 254 X10'3 (140-440); RED CELL DISTRIBUTION WIDTH 13.4 % (11.5-14.5); WHITE BLOOD COUNT 11.6 X10'3 (4.5-11.0)
[2018-01-20 05:34] LABS: ALBUMIN 2.9 G/DL (3.4-5.0); ANION GAP 8 (8-16); BLOOD UREA NITROGEN 13 MG/DL (7-18); BUN/CREATININE RATIO 12.6 (5.4-32.0); CALCIUM 10.6 MG/DL (8.5-10.1); CHLORIDE 101 MMOL/L (99-107); CREATININE 1.03 MG/DL (0.60-1.10); GLUCOSE 131 MG/DL (70-104); POTASSIUM 3.9 MMOL/L (3.5-5.1); SODIUM 134 MMOL/L (135-145); TOTAL CARBON DIOXIDE 25.2 MMOL/L (24-32); eGFR 72 ML/MIN
[2018-01-20 06:00] VITALS: BP 143/78
[2018-01-20 07:11] LABS: MAGNESIUM 1.9 MG/DL (1.5-2.4)
[2018-01-20] MEDS ORDERED: furosemide 40mg/4ml inj IV ONE (07:25)
[2018-01-20] MEDS ORDERED: AMIO200T40 PO (07:31)
[2018-01-20] MEDS ORDERED: HYDR-3972 PO (07:31)
[2018-01-20] MEDS ORDERED: COL100C PO (07:31)
[2018-01-20] MEDS ORDERED: ASPI-41 PO (07:31)
[2018-01-20] MEDS: K and/or MAG REPLACEMENT MC SCH (08:00)
[2018-01-20] MEDS ORDERED: amiodarone 200mg tablet PO SCH (08:00)
[2018-01-20] MEDS ORDERED: lisinopril 10 MG tablet PO SCH (08:00)
[2018-01-20] MEDS ORDERED: metoprolol tartrate 25mg tablet PO SCH (08:00)
[2018-01-20] MEDS: docusate sod 100mg capsule PO SCH (08:00)
[2018-01-20] MEDS: lactose-reduced food (Ensure Enlive) - 237ml bottle PO SCH ×2 (08:00→13:00)
[2018-01-20] MEDS: magnesium Cl slow-release 64mg tablet PO SCH (08:22)
[2018-01-20] MEDS: potassium Cl 20 mEq SR tablet PO SCH (08:23)
[2018-01-20] MEDS: tamsulosin 0.4mg capsule PO SCH (08:23)
[2018-01-20] MEDS: pantoprazole 40mg Tablet.DR PO SCH (08:24)
[2018-01-20] MEDS: aspirin 325mg tablet, delayed-release (Ecotrin) PO SCH (08:24)
[2018-01-20] MEDS: atorvastatin 20mg tablet PO SCH (08:25)
[2018-01-20 11:00] VITALS: BP 138/72
[2018-01-20 15:00] VITALS: BP 117/63
== END 2018-01-20 17:52 | disposition home health service (06) | DRG 234 ==
LOC: SSTAY O 14:10 → PCU 3S 19:34 → CICU 2S 01-14 13:40 → PCU 3S 01-18 15:09
PROVIDERS: ADMIT Internal Medicine Interventional Cardiology; ATTEND Thoracic Surgery (Cardiothoracic Vascular Surgery)
PROC: 4A023N7 Measurement of Cardiac Sampling and Pressure, Left Heart, Percutaneous Approach (ICD-10-PCS; principal; 2018-01-12)
PROC: B2111ZZ Fluoroscopy of Multiple Coronary Arteries using Low Osmolar Contrast (ICD-10-PCS; 2018-01-12)
PROC: B2151ZZ Fluoroscopy of Left Heart using Low Osmolar Contrast (ICD-10-PCS; 2018-01-12)
PROC: 02100Z8 Bypass Coronary Artery, One Artery from Right Internal Mammary, Open Approach (ICD-10-PCS; 2018-01-14)
PROC: 02100Z9 Bypass Coronary Artery, One Artery from Left Internal Mammary, Open Approach (ICD-10-PCS; 2018-01-14)
PROC: 5A1221Z Performance of Cardiac Output, Continuous (ICD-10-PCS; 2018-01-14)
PROC: B24BZZ4 Ultrasonography of Heart with Aorta, Transesophageal (ICD-10-PCS; 2018-01-14)
PROC: 02HV33Z Insertion of Infusion Device into Superior Vena Cava, Percutaneous Approach (ICD-10-PCS; 2018-01-14)
DX: I25.10 Atherosclerotic heart disease of native coronary artery without angina pectoris (principal); K56.7 Ileus, unspecified; I73.9 Peripheral vascular disease, unspecified; I25.2 Old myocardial infarction; E78.5 Hyperlipidemia, unspecified; I10 Essential (primary) hypertension; R14.0 Abdominal distension (gaseous); R94.39 Abnormal result of other cardiovascular function study; I48.91 Unspecified atrial fibrillation; K59.00 Constipation, unspecified; N40.0 Benign prostatic hyperplasia without lower urinary tract symptoms; Z95.828 Presence of other vascular implants and grafts; Z95.5 Presence of coronary angioplasty implant and graft; Z79.899 Other long term (current) drug therapy
CPT/HCPCS: 0232T; 93312; 93325; 93459; 36415; 36600; 71045; 71046; 80048; 80053; 80061; 80162; 82330; 82435; 82803; 82947; 82948; 83036; 83735; 84100; 84132; 84295; 85018; 85025; 85347; 85384; 85610; 85730; 86885; 86900; 86901; 86920; 87070; 93005; 93880; 93930; 93970; 94002; 94010; 94668; 94760; 97110; 97116; 97161; 97530; 99152; A4620; A6213; A6255; A6257; A6258; A6402; A6449; A7000; A7015; A7048; C1751; C1769; J0282; J0690; J0780; J1160; J1644; J1815; J1885; J1940; J2001; J2060; J2150; J2250; J2270; J2370; J2405; J2440; J2704; J2710; J2765; J2930; J3010; J3370; J3475; J3480; J3490; J7030; J7120; P9045; Q0163; Q9967

== ENCOUNTER 2020-03-15 00:25 | Emergency (ER) | payer MEDICARE ==
[~2020-03-15] VITALS: Ht 175.3 cm; Wt 88.6 kg
[~2020-03-15 00:25] MED LIST changes: +AMIO200T61 PO; +ASPI-41 PO; -ASPI-611 PO; +COL100C PO; +FOLI100T PO; +HYDR-3972 PO; -HYDROcodone/acetaminophen 10/325mg tab PO PRN; -ISOS30TA6 PO; -OXAZEpam 15mg capsule PO PRN; -SILO8CAP PO; +TAMS0.4C32 PO; -nitroGLYCERIN 0.4mg SUBLingual tab SL PRN; -proCHLORperazine 10 MG/2 ml inj IV PRN
[2020-03-15 00:33] VITALS: BP 148/78
[2020-03-15] MEDS ORDERED: TETanus/Pertussis (Acell)/Diphther VAC/PF (Tdap-Adult) 0.5ml syringe IMVAC ONE (00:45)
[2020-03-15] MEDS ORDERED: LIDOcaine 1% W/epiNEPHrine 1:100,000 20ml vial IJ ONE (00:50)
== END 2020-03-15 02:10 | disposition home or self-care (01) ==
LOC: ER 00:26
DX: S01.81XA Laceration without foreign body of other part of head, initial encounter (principal); S09.90XA Unspecified injury of head, initial encounter; I25.10 Atherosclerotic heart disease of native coronary artery without angina pectoris; I10 Essential (primary) hypertension; Z72.89 Other problems related to lifestyle; Z98.61 Coronary angioplasty status; Z79.82 Long term (current) use of aspirin; Z79.899 Other long term (current) drug therapy; W01.0XXA Fall on same level from slipping, tripping and stumbling without subsequent striking against object, initial encounter; Y93.89 Activity, other specified; Y92.89 Other specified places as the place of occurrence of the external cause; Y99.8 Other external cause status
CPT/HCPCS: 12013; 70450; 70486; 90471; 90715; 99285

== ENCOUNTER 2020-03-20 09:56 | Emergency (ER) | payer MEDICARE ==
[~2020-03-20] VITALS: Ht 175.3 cm; Wt 88.6 kg
[2020-03-20 10:00] VITALS: BP 160/55
== END 2020-03-20 10:16 | disposition home or self-care (01) ==
LOC: ER 09:56
DX: S01.81XD Laceration without foreign body of other part of head, subsequent encounter (principal); I25.10 Atherosclerotic heart disease of native coronary artery without angina pectoris; I10 Essential (primary) hypertension; Z95.1 Presence of aortocoronary bypass graft; Z72.89 Other problems related to lifestyle; Z79.82 Long term (current) use of aspirin; Z79.899 Other long term (current) drug therapy; X58.XXXD Exposure to other specified factors, subsequent encounter
CPT/HCPCS: 99284

== ENCOUNTER 2024-08-08 07:51 | Day surgery (SDC) | payer MEDICARE ==
[2024-08-04 09:47] LABS: BASOPHILS % (AUTO) 0.4 % (0-1); EOSINOPHILS # (AUTO) 0.1 X10'3 (0-0.9); HEMATOCRIT 43.6 % (42.0-52.0); HEMOGLOBIN 14.8 g/dl (14.0-17.9); LYMPHOCYTES % (AUTO) 18.8 % (21-51); MEAN CORPUSCULAR HEMOGLOBIN 32.7 PG (27.0-31.0); MEAN CORPUSCULAR VOLUME 96.4 FL (78-98); MEAN PLATELET VOLUME 6.3 FL (7.4-10.4); MONOCYTES # (AUTO) 0.4 X10'3 (0-0.9); MONOCYTES % (AUTO) 8.2 % (2-12); NEUTROPHILS # (AUTO) 3.7 X10'3 (1.8-7.7); NEUTROPHILS % (AUTO) 70.6 % (42-75); PLATELET COUNT 196 X10'3 (140-440); RED BLOOD COUNT 4.52 X10'6 (4.70-6.10); RED CELL DISTRIBUTION WIDTH 13.1 % (11.5-14.5); WHITE BLOOD COUNT 5.3 X10'3 (4.5-11.0)
[2024-08-04 10:00] LABS: APTT 30 SECONDS (22-32); PROTHROMBIN TIME 10.7 SECONDS (9.0-12.0)
[2024-08-04 10:08] LABS: ALBUMIN 3.8 G/DL (3.4-5.0); ANION GAP 6 (8-16); BLOOD UREA NITROGEN 20 MG/DL (7-18); BUN/CREATININE RATIO 19.4 (10.0-20.0); CALCIUM 9.2 MG/DL (8.5-10.1); CHLORIDE 102 MMOL/L (99-107); CHOL/HDL RATIO 2.7 (0.00-4.99); CHOLESTEROL 144 MG/DL (0-200); CREATININE 1.03 MG/DL (0.60-1.10); GLUCOSE 150 MG/DL (70-104); HDL CHOLESTEROL 53 MG/DL (35-60); LDL CHOLESTEROL 72 MG/DL (50-100); POTASSIUM 4.1 MMOL/L (3.5-5.1); SODIUM 136 MMOL/L (135-145); TRIGLYCERIDES 63 MG/DL (20-135); eGFR 71 ML/MIN
[2024-08-08] VITALS (9 sets, daily range): BP systolic 113–140; BP diastolic 55–79; PULSE 54–65; RESP 11–13; TEMP 98.1; O2SAT 97–100
[~2024-08-08] VITALS: Ht 175.3 cm; Wt 85.9 kg
[~2024-08-08 07:51] MED LIST changes: +AMI200T PO; -AMIO200T61 PO; +ASPI-1265 PO; -ASPI-41 PO; +ATOR-429 PO; -ATOR80TA PO; +LISI10TA27 PO; -LISI10TA4 PO
[2024-08-08] MEDS ORDERED: EZET10TA6 PO (08:29)
[2024-08-08] MEDS ORDERED: DICL50TA8 PO (08:29)
[2024-08-08] MEDS ORDERED: LISI20TA28 PO (08:29)
[2024-08-08] MEDS ORDERED: ISOS30TA84 PO (08:29)
[2024-08-08] MEDS ORDERED: LIDOcaine 1% 30ml preserv. free vial ONE (08:49)
[2024-08-08] MEDS ORDERED: midazolam 1 mg/ML 2ml injection ONE ×3 (08:49→10:11)
[2024-08-08] MEDS ORDERED: heparin 1,000unit/ml 10ml vial 10 ML ONE (08:49)
[2024-08-08] MEDS ORDERED: iohexol 350MG/ML 100ml bottle IV ONE ×2 (08:49→09:55)
[2024-08-08] MEDS ORDERED: fentaNYL/PF 50MCG/1 ML 2ML syringe ONE (08:49)
[2024-08-08] MEDS: diphenhydrAMINE 25mg capsule PO PRN (08:52)
[2024-08-08] MEDS: normal saline 1,000 ML IV SCH (08:52)
[2024-08-08] MEDS: LORazepam 0.5 MG tablet PO PRN (08:52)
[2024-08-08] MEDS ORDERED: iohexol 350 MG/ML 50ML vial IV ONE (09:47)
[2024-08-08] MEDS ORDERED: clopidogrel 300mg tablet ONE (09:54)
[2024-08-08] MEDS ORDERED: aspirin 325mg tablet ONE (09:54)
[2024-08-08] MEDS ORDERED: HYDROcodone/acetaminophen 5mg/325mg tablet PO PRN (11:30)
[2024-08-08] MEDS ORDERED: HYDROcodone/acetaminophen 10/325mg tab PO PRN (11:30)
[2024-08-08] MEDS ORDERED: CLOP-32 PO (12:01)
== END 2024-08-08 13:30 | disposition home or self-care (01) ==
LOC: SSTAY O 07:51
PROVIDERS: ATTEND Student in an Organized Health Care Education/Training Program
DX: R07.9 Chest pain, unspecified (principal); I25.110 Atherosclerotic heart disease of native coronary artery with unstable angina pectoris; I10 Essential (primary) hypertension; I73.9 Peripheral vascular disease, unspecified; E78.5 Hyperlipidemia, unspecified; I25.10 Atherosclerotic heart disease of native coronary artery without angina pectoris; I48.91 Unspecified atrial fibrillation
CPT/HCPCS: 36415; 80048; 80061; 85025; 85610; 85730; 93005; 93458; 99152; 99153; A6258; C1725; C1751; C1760; C1769; C1874; C9600; J1644; J2003; J2250; J3010; J7030; Q0163; Q9967; Z7610